=== PATIENT | male | born 1990 | race Caucasian/White ===

== ENCOUNTER 2018-02-25 10:40 | Emergency (ER) | payer OTHER ==
[2018-02-25] MEDS ORDERED: ONDANSETRON 4 MG/2 ML VIAL ONE (11:01)
[2018-02-25] MEDS ORDERED: MORPHINE 4 MG/ML SYR ONE (11:01)
[2018-02-25 11:03] LABS: Absolute Lymphocytes (CBC) 2.3 K/uL (0.7-4.9); Absolute Monocytes 0.8 K/uL (0.1-1.3); Absolute Neutrophil 3.7 K/uL (1.8-8.0); Basophils % 0.6 % (0-1.3); Eosinophils % 1.9 % (0-4.4); Hematocrit 46.8 % (39.6-49.0); Lymphocytes % 33.5 % (15.3-44.8); MCH 29.7 pg (27.0-35.0); MCV 83.1 fL (80-100); MPV 8.9 fL (7.6-11.3); Monocytes % 10.9 % (3.3-12.3); RBC Red Blood Cell Count 5.63 M/uL (4.33-5.43)
[2018-02-25 11:06] LABS: Protime INR 0.98
[2018-02-25 11:30] LABS: ALT/SGPT 34 U/L (12-78); AST/SGOT 21 U/L (15-37); Albumin 3.9 g/dL (3.4-5.0); Alkaline Phosphatase 111 U/L (45-117); BUN Blood Urea Nitrogen 10 mg/dL (7-18); Bicarbonate 29 mmol/L (21-32); Bilirubin Direct < 0.1 mg/dL (0-0.2); Bilirubin Total 0.5 mg/dL (0.2-1.0); Glucose Level 114 mg/dL (74-106); Potassium 4.4 mmol/L (3.5-5.1); Protein, Total 7.8 g/dL (6.4-8.2); Sodium Level 141 mmol/L (136-145)
[2018-02-25 11:31] LABS: Magnesium 2.3 mg/dL (1.8-2.4); NT PRO-BNP 10 pg/mL (<125); Troponin (Emerg Dept Use Only) < 0.02 ng/mL (0.0-0.045)
[2018-02-25] MEDS ORDERED: KETOROLAC 30 MG/ML INJ ONE ×2 (11:55→13:05)
--- NOTE | 2018-02-25 12:09 | RAD REPORT ---
EXAM DESCRIPTION: RAD - Chest Single View - 02/25/2018 11:49 am CLINICAL HISTORY: CHEST PAIN Chest pain. COMPARISON: CHEST PA AND LAT 2 VIEW dated 06/16/2015 FINDINGS: Portable technique limits examination quality. The lungs are underinflated but grossly clear. The heart is normal in size. No displaced fractures. IMPRESSION: Underinflated lungs.
--- NOTE | 2018-02-25 12:24 | EKG ---
Test Date: 2018-02-25 Test Time: 10:42:40 [employer]ofer [employer]ating: MEASUREMENT RESULTS: Intervals: Rate: 86 MD: 154 QRSD: 78 QT: 350 QTc: 418 [place]: P: 39 MD: 154 QRS: -12 T: 48 INTERPRETIVE STATEMENTS: Normal sinus rhythm Normal ECG Compared to ECG 02/06/2004 09:50:00 No significant changes Electronically Signed On 02-25-18 12:23:46 CDT by Otilio Love
[2018-02-25 12:25] LABS: Barbiturates NEGATIVE (NEGATIVE); Benzodiazepines NEGATIVE (NEGATIVE); Cocaine NEGATIVE (NEGATIVE); METHAMPHETAM NEGATIVE (NEGATIVE); Methadone NEGATIVE (NEGATIVE); Opiates POSITIVE (NEGATIVE); Phencyclidine NEGATIVE (NEGATIVE); THC Cannibis NEGATIVE (NEGATIVE)
[2018-02-25 12:35] LABS: Urine Blood NEGATIVE (NEG); Urine Glucose NEGATIVE (NEG); Urine Protein NEGATIVE (NEG); Urine Specific Gravity >1.030 (1.005-1.030)
--- NOTE | 2018-02-25 13:32 | RAD REPORT ---
EXAM DESCRIPTION: CT - Thorax W/ Con CLINICAL HISTORY: Chest pain chest pain COMPARISON: Chest Single View dated 02/25/2018 FINDINGS: The lungs are underinflated with linear opacities in both posterior lung bases most compat ible with atelectasis. No focal pulmonary infiltrate. No pleural thickening or pleural effusion. No p neumothorax. No axillary, mediastinal or hilar adenopathy. No concerning bony finding. No gross upper abdominal finding. All CT scans are performed using dose optimization technique as appropriate and may include automated exposure control or mA/KV adjustment according to patient size. IMPRESSION: Underinflated lungs.No acute intrathoracic abnormality.
[2018-02-25] MEDS ORDERED: METHYLPREDNISOLONE 125 MG INJ ONE (14:27)
--- NOTE | 2018-02-25 14:53 | EDPHYS ---
Physician Documentation [facility] Name: Phill Woodard Age: 28 yrs Sex: Male : 1990 Arrival Date: 02/25/2018 Time: 10:41 Bed 3 Private MD: None, None ED Physician Fei Sarabia HPI: 02/25 10:46 This 28 yrs old Male presents to ER via EMS with complaints of Chest Pain. cp 10:46 The patient or guardian reports chest pain that is located primarily in the anterior cp chest wall, left. 10:46 The pain radiates to left back. Duration: The patient or guardian reports a single cp episode, that is still ongoing, and worsening, started last night. Modifying factors: the symptoms are aggravated by deep breath. Historical: - Allergies: 10:49 No Known Allergies; sg - Home Meds: 10:49 None [Active]; sg - PMHx: 10:49 None; sg - PSHx: 10:49 None; sg - Social history:: Smoking status: Patient/guardian denies using tobacco. - Ebola Screening: : Patient negative for fever greater than or equal to 101.5 degrees Fahrenheit, and additional compatible Ebola Virus Disease symptoms Patient denies exposure to infectious person Patient denies travel to an Ebola-affected area in the 21 days before illness onset No symptoms or risks identified at this time. - Family history:: Father has/had multiple AL. ROS: 10:50 Constitutional: Negative for body aches, chills, fever, poor PO intake. cp 10:50 Eyes: Negative for injury, pain, redness, and discharge. cp 10:50 ENT: Negative for drainage from ear(s), ear pain, sore throat, difficulty swallowing, difficulty handling secretions. 10:50 Cardiovascular: Positive for chest pain, Negative for edema, palpitations. 10:50 Respiratory: Positive for shortness of breath, Negative for cough, wheezing. 10:50 Abdomen/GI: Negative for abdominal pain, nausea, vomiting, and diarrhea, constipation, black/tarry stool, rectal bleeding. 10:50 Back: Positive for radiated pain, Negative for pain at rest, pain with movement. 10:50 : Negative for urinary symptoms. 10:50 Skin: Negative for cellulitis, rash. 10:50 Neuro: Negative for altered mental status, dizziness, headache, syncope, near syncope, weakness. 10:50 All other systems are negative. Exam: 10:45 ECG was reviewed by the Attending Physician. cp 10:55 Constitutional: The patient appears in no acute distress, alert, awake, cp non-diaphoretic, well developed, well nourished, uncomfortable. 10:55 Head/Face: Normocephalic, atraumatic. Eyes: Pupils equal round and reactive to light, cp extra-ocular motions intact. Lids and lashes normal. Conjunctiva and sclera are non-icteric and not injected. Cornea within normal limits. Periorbital areas with no swelling, redness, or edema. ENT: Nares patent. No nasal discharge, no septal abnormalities noted. Tympanic membranes are normal and external auditory canals are clear. Oropharynx with no redness, swelling, or masses, exudates, or evidence of obstruction, uvula midline. Mucous membranes moist. Neck: Trachea midline, no thyromegaly or masses palpated, and no cervical lymphadenopathy. Supple, full range of motion without nuchal rigidity, or vertebral point tenderness. No Meningismus. 10:55 Chest/axilla: Inspection: normal, Palpation: crepitus, is not appreciated, tenderness, that is mild, of the anterior aspect of left upper chest and left breast. 10:55 Cardiovascular: Rate: normal, Rhythm: regular, Pulses: Pulses are 2+ in right radial artery and left radial artery. Heart sounds: murmur, not appreciated, rub, not appreciated, gallop, not appreciated, Edema: is not appreciated, JVD: is not appreciated. 10:55 Respiratory: the patient does not display signs of respiratory distress, Respirations: normal, no use of accessory muscles, no retractions, no splinting, no tachypnea, labored breathing, is not present, Breath sounds: are clear throughout, no decreased breath sounds, no stridor, no wheezing. 10:55 Abdomen/GI: Inspection: abdomen appears normal, Bowel sounds: active, all quadrants, Palpation: abdomen is soft and non-tender, in all quadrants, rebound tenderness, is not appreciated, voluntary guarding, is not appreciated, involuntary guarding, is not appreciated. 10:55 Back: ROM is normal. 10:55 Skin: cellulitis, is not appreciated, no rash present. 10:55 Neuro: Orientation: to person, place \T\ time. Mentation: lucid, able to follow commands, Cerebellar function: is grossly normal, Motor: moves all fours, strength is normal, Sensation: is normal. 14:09 ECG was reviewed by the Attending Physician. Vital Signs: 10:45 BP 137 / 80; Pulse 79; Resp 17 S; Pulse Ox 93% on R/A; Weight 86.18 kg (R); Height 6 sg ft. 0 in. (182.88 cm) (R); Pain 7/10; 11:45 BP 94 / 81; Pulse 77; Resp 16; Pulse Ox 100% on R/A; Pain 8/10; hb 12:45 BP 112 / 78; Pulse 76; Resp 15; Pulse Ox 100% on R/A; hb 13:45 BP 127 / 67; Pulse 74; Resp 15; Pulse Ox 100% on R/A; Pain 8/10; hb 14:45 BP 132 / 70; Pulse 72; Resp 15; Pulse Ox 100% on R/A; hb 10:45 Body Mass Index 25.77 (86.18 kg, 182.88 cm) sg MDM: 10:43 Patient medically screened. 14:52 Data reviewed: vital signs, nurses notes, lab test result(s), EKG, radiologic studies, cp CT scan, plain films. 14:52 Test interpretation: by ED physician or midlevel provider: ECG, plain radiologic cp studies. Special discussion: Based on the patient's history, exam, and Dx evaluation, there is no indication for emergent intervention or inpatient Tx. It is understood by the patient/guardian that if the Sx's persist or worsen they need to return immediately for re-evaluation. ED course: VSS. Pain improved with IV fluids and meds. Initial and repeat EKGs and troponin negative. Will discharge to home for continued monitoring. 02/25 10:44 Order name: Basic Metabolic Panel; Complete Time: 12:04 cp 02/25 12:05 Interpretation: Normal except: GLUC 114; GFR 80. cp 02/25 10:44 Order name: CBC with Diff; Complete Time: 11:16 cp 02/25 11:16 Interpretation: Normal except: RBC 5.63. cp 02/25 10:44 Order name: LFT's; Complete Time: 12:04 cp 02/25 12:05 Interpretation: Normal except: GLOB 3.9; A/G 1.0. cp 02/25 10:44 Order name: Magnesium; Complete Time: 12:04 cp 02/25 10:44 Order name: NT PRO-BNP; Complete Time: 12:04 cp 02/25 12:05 Interpretation: Within normal limits: NT PRO-BNP 10. cp 02/25 10:44 Order name: PT-INR; Complete Time: 11:16 cp 02/25 10:44 Order name: Troponin (emerg Dept Use Only); Complete Time: 12:04 cp 02/25 12:05 Interpretation: TROPED < 0.02; Reviewed. cp 02/25 10:44 Order name: XRAY Chest (1 view); Complete Time: 12:16 cp 02/25 12:16 Interpretation: Report review. 02/25 10:44 Order name: D-Dimer; Complete Time: 11:16 cp 02/25 11:16 Interpretation: D-DIMER 225; Reviewed. 02/25 10:44 Order name: UDS; Complete Time: 12:31 cp 02/25 12:31 Interpretation: Normal except: OPI POSITIVE. cp 02/25 12:26 Order name: Urine Dipstick--Ancillary (enter results); Complete Time: 12:41 bd 02/25 12:41 Interpretation: Normal except: USPGR >1.030. cp 02/25 12:59 Order name: CT Chest W/ Con; Complete Time: 13:43 cp 02/25 13:47 Order name: Troponin I; Complete Time: 14:49 cp 02/25 14:50 Interpretation: TROP < 0.02; Reviewed. 02/25 10:44 Order name: EKG; Complete Time: 10:45 cp 02/25 10:44 Order name: Cardiac monitoring; Complete Time: 10:48 cp 02/25 10:44 Order name: EKG - Nurse/Tech; Complete Time: 10:48 cp 02/25 10:44 Order name: IV Saline Lock; Complete Time: 10:48 cp 02/25 10:44 Order name: Labs collected and sent; Complete Time: 10:48 cp 02/25 10:44 Order name: O2 Per Protocol; Complete Time: 10:49 cp 10 10:44 Order name: O2 Sat Monitoring; Complete Time: 10:49 cp 10 10:47 Order name: Blood Pressure Recheck: bilateral upper extremities; Complete Time: 13:26 cp 02/25 13:47 Order name: EKG; Complete Time: 13:47 cp 02/25 13:47 Order name: EKG - Nurse/Tech; Complete Time: 14:27 cp EC:45 Rate is 86 beats/min. Rhythm is regular. KS interval is normal. QRS interval is normal. cp QT interval is normal. Interpreted by me. Reviewed by me. 14:09 Rate is 64 beats/min. Rhythm is regular. KS interval is normal. QRS interval is normal. cp QT interval is normal. Interpreted by me. Reviewed by me. Administered Medications: 10:48 Not Given (administere by EMS ): Aspirin Chewable Tablet 324 mg PO once; 81 mg tablets sg x 4 10:57 Drug: morphine 2 mg Route: IVP; Site: right antecubital; hb 11:30 Follow up: Response: No adverse reaction hb 10:57 Drug: Zofran 4 mg Route: IVP; Site: right antecubital; hb 13:26 Follow up: Response: No adverse reaction hb 12:30 Drug: NS 0.9% 1000 ml Route: IV; Rate: 1 bolus; Site: right antecubital; hb 13:30 Follow up: Response: No adverse reaction; IV Status: Completed infusion hb 12:33 Drug: TORadol 30 mg Route: IVP; Site: right antecubital; hb 13:15 Follow up: Response: No adverse reaction hb 14:10 Drug: SOLU-Medrol 125 mg Route: IVP; Site: right antecubital; hb 14:44 Follow up: Response: No adverse reaction hb 14:44 Drug: HYDROcodone-acetaminophen 5 mg-325 mg 1 tabs Route: PO; hb 15:22 Follow up: Response: No adverse reaction hb Disposition: 18:21 Co-signature as Attending Physician, Fei Sarabia MD. gs Disposition: 02/25/18 14:53 Discharged to Home. Impression: Other chest pain. - Condition is Stable. - Discharge Instructions: Nonspecific Chest Pain, Pleurisy. - Prescriptions for ketorolac 10 mg Oral tablet - take 1 tablet by ORAL route every 6 hours for 5 days not to exceed 40 mg in 24hrs; 20 tablet. Tramadol 50 mg Oral Tablet - take 1 tablet by ORAL route every 8 hours as needed; 20 tablet. - Work release form, Medication Reconciliation Form, Thank You Letter, Antibiotic Education, Prescription Opioid Use form. - Follow up: Private Physician; When: 2 - 3 days; Reason: Recheck today's complaints. - Problem is new. - Symptoms have improved. Signatures: Dispatcher [employer] [facility] Eron Lakhani, RN RN sg Kip Fields PA PA cp Cynthia Walker RN RN Fei Sarabia MD MD gs Corrections: (The following items were deleted from the chart) 13:02 12:45 Thorax W/ Con+CT.RAD.BRZ ordered. [facility] 15:26 14:53 02/25/2018 14:53 Discharged to Home. Impression: Other chest pain. Condition is hb Stable. Forms are Medication Reconciliation Form, Thank You Letter, Antibiotic Education, Prescription Opioid Use. Follow up: Private Physician; When: 2 - 3 days; Reason: Recheck today's complaints. Problem is new. Symptoms have improved. cp
--- NOTE | 2018-02-25 14:53 | ER ---
Nurse's Notes [facility] Name: Phill Woodard Age: 28 yrs Sex: Male : 1990 Arrival Date: 02/25/2018 Time: 10:41 Bed 3 Private MD: None, None Diagnosis: Other chest pain Presentation: 02/25 10:41 Presenting complaint: EMS states: CP that started last night, worsened this morning sg while walking through his home, reports feeling short of breath as well with the pain radiating to the back. Transition of care: patient was not received from another setting of care. Onset of symptoms was February 25, 2018. Risk Assessment: Do you want to hurt yourself or someone else? Patient reports no desire to harm self or others. Initial Sepsis Screen: Does the patient meet any 2 criteria? No. Patient's initial sepsis screen is negative. Does the patient have a suspected source of infection? No. Patient's initial sepsis screen is negative. Care prior to arrival: Medication(s) given: ASA, 81 mg, x 4, Nitroglycerin, 0.4 mg SL x 1, Nubain 10 mg IV pain down from 8 to 7 IV initiated. 20 GA, in the right antecubital area, Glucose check: 135 Oxygen administered. via nasal cannula. 10:41 Method Of Arrival: EMS: [facility] sg 10:41 Acuity: TOMMY 3 sg Historical: - Allergies: 10:49 No Known Allergies; sg - Home Meds: 10:49 None [Active]; sg - PMHx: 10:49 None; sg - PSHx: 10:49 None; sg - Social history:: Smoking status: Patient/guardian denies using tobacco. - Ebola Screening: : Patient negative for fever greater than or equal to 101.5 degrees Fahrenheit, and additional compatible Ebola Virus Disease symptoms Patient denies exposure to infectious person Patient denies travel to an Ebola-affected area in the 21 days before illness onset No symptoms or risks identified at this time. - Family history:: Father has/had multiple [place]. Screenin:57 Abuse screen: Denies threats or abuse. Denies injuries from another. Nutritional sg screening: No deficits noted. Tuberculosis screening: No symptoms or risk factors identified. Never had TB. Fall Risk None identified. Assessment: 10:55 General: Appears in no apparent distress. uncomfortable, ill, well groomed, well sg developed, well nourished, Behavior is calm, cooperative, quiet. Pain: Complains of pain in chest Quality of pain is described as sharp, shooting. Neuro: Level of Consciousness is awake, alert, obeys commands, Oriented to person, place, time, situation, Homemaking Rehabilitation Consultant are equal bilaterally Moves all extremities. Full function Speech is normal, Facial symmetry appears normal. Cardiovascular: Heart tones S1 S2 present Capillary refill is brisk in bilateral fingers Patient's skin is warm and dry. Chest pain quality is clutching, heaviness, pressure, is located in anterior chest wall. Respiratory: Airway is patent Respiratory effort is even, unlabored, Respiratory pattern is regular, symmetrical. GI: Abdomen is round non-distended. : No signs and/or symptoms were reported regarding the genitourinary system. EENT: No signs and/or symptoms were reported regarding the EENT system. Derm: Skin is intact, is healthy with good turgor, Skin is clammy, Skin is pale, Skin temperature is cool. Musculoskeletal: Circulation, motion, and sensation intact. Range of motion: intact in all extremities, Swelling absent. 11:51 Reassessment: Pt c/o left sided chest pain 8/10 that radiates to back. VSS. PA Page hb notified, Toradol administered as ordered. Family remains at bedside. 12:45 Reassessment: Pt c/o left sided chest pain 8/10, PA Page notified, Toradol administered hb as ordered. VS. Family remains at bedside. 13:30 Reassessment: Patient appears in no apparent distress at this time. Patient and/or hb family updated on plan of care and expected duration. Pain level reassessed. Patient is alert, oriented x 3, equal unlabored respirations, skin warm/dry/pink. Patient is alert/active/playful, equal unlabored respirations, skin warm/dry/pink. Pt reports pain 8/10, PA Page notified, no new orders at this time. 14:30 Reassessment: Patient appears in no apparent distress at this time. Patient and/or hb family updated on plan of care and expected duration. Pain level reassessed. Patient is alert, oriented x 3, equal unlabored respirations, skin warm/dry/pink. Vital Signs: 10:45 BP 137 / 80; Pulse 79; Resp 17 S; Pulse Ox 93% on R/A; Weight 86.18 kg (R); Height 6 sg ft. 0 in. (182.88 cm) (R); Pain 7/10; 11:45 BP 94 / 81; Pulse 77; Resp 16; Pulse Ox 100% on R/A; Pain 8/10; hb 12:45 BP 112 / 78; Pulse 76; Resp 15; Pulse Ox 100% on R/A; hb 13:45 BP 127 / 67; Pulse 74; Resp 15; Pulse Ox 100% on R/A; Pain 8/10; hb 14:45 BP 132 / 70; Pulse 72; Resp 15; Pulse Ox 100% on R/A; hb 10:45 Body Mass Index 25.77 (86.18 kg, 182.88 cm) ED Course: 10:41 Patient arrived in ED. sg 10:41 Kip Fields PA is PHCP. cp 10:41 Fei Sarabia MD is Attending Physician. cp 10:41 None, None is Private Physician. sg 10:43 Triage completed. sg 10:45 Initial lab(s) drawn, by ED staff, sent to lab. EKG done, by ED staff, reviewed by watson RAMIREZ. Maintain EMS IV. Dressing intact. Site clean \T\ dry. Gauge \T\ site: 20 G RAC. IV is patent, is intact, with good blood return. Oxygen administration via nasal cannula \T\ 2L/min Response to oxygen therapy:. 10:51 Arm band placed on. sg 10:55 Eron Lakhani, RN is Primary Nurse. sg 10:57 Patient has correct armband on for positive identification. Bed in low position. Call sg light in reach. Side rails up X2. room manager on. Pulse ox on. NIBP on. Warm blanket given. pt at bedside with pt at this time Head of bed elevated. Diet: Patient is NPO. 11:47 X-ray completed. Portable x-ray completed in exam room. Patient tolerated procedure ag1 well. 11:50 XRAY Chest (1 view) In Process Unspecified. EDMS 13:18 CT Chest W/ Con In Process Unspecified. EDMS 14:08 REPEAT EKG DONE. sm3 14:10 Repeat lab(s) drawn. by me, sent to lab. dh3 15:05 No provider procedures requiring assistance completed. IV discontinued, intact, hb bleeding controlled, No redness/swelling at site. Pressure dressing applied. Administered Medications: 10:48 Not Given (administere by EMS ): Aspirin Chewable Tablet 324 mg PO once; 81 mg tablets sg x 4 10:57 Drug: morphine 2 mg Route: IVP; Site: right antecubital; hb 11:30 Follow up: Response: No adverse reaction hb 10:57 Drug: Zofran 4 mg Route: IVP; Site: right antecubital; hb 13:26 Follow up: Response: No adverse reaction hb 12:30 Drug: NS 0.9% 1000 ml Route: IV; Rate: 1 bolus; Site: right antecubital; hb 13:30 Follow up: Response: No adverse reaction; IV Status: Completed infusion hb 12:33 Drug: TORadol 30 mg Route: IVP; Site: right antecubital; hb 13:15 Follow up: Response: No adverse reaction hb 14:10 Drug: SOLU-Medrol 125 mg Route: IVP; Site: right antecubital; hb 14:44 Follow up: Response: No adverse reaction hb 14:44 Drug: HYDROcodone-acetaminophen 5 mg-325 mg 1 tabs Route: PO; hb 15:22 Follow up: Response: No adverse reaction hb Outcome: 14:53 Discharge ordered by MD. cp 15:05 Discharged to home ambulatory, with family. 15:05 Condition: stable 15:05 Discharge instructions given to patient, family, Instructed on discharge instructions, follow up and referral plans. medication usage, Demonstrated understanding of instructions, follow-up care, medications, Prescriptions given X 2. 15:26 Patient left the ED. Signatures: Dispatcher [employer] EDMS rEon Lakhani RN RN sg Callie Tsai ag1 Kip Fields PA PA cp Baxter, Heather, RN RN Rabia Herrera 3 Dori Hart 3 Corrections: (The following items were deleted from the chart) 10:44 10:41 Care prior to arrival: Medication(s) given: ASA, 81 mg, x 4, Nitroglycerin, 0.4 sg mg SL x 1, IV initiated. 20 GA, in the right antecubital area, Glucose check: 135 Oxygen administered. via nasal cannula, sg
[2018-02-25] MEDS ORDERED: HYDROCODONE/APAP 5/325 MG TAB ONE (14:56)
--- NOTE | 2018-02-25 17:38 | EKG ---
Test Date: 2018-02-25 Test Time: 13:58:29 Drywall Hanger: KATHY MEASUREMENT RESULTS: Intervals: Rate: 64 OH: 160 QRSD: 80 QT: 394 QTc: 406 Mcdowell: P: 44 OH: 160 QRS: 16 T: 42 INTERPRETIVE STATEMENTS: Normal sinus rhythm with sinus arrhythmia Normal ECG Compared to ECG 02/25/2018 10:42:40 No significant changes Electronically Signed On 02-25-18 17:37:49 CDT by Otilio Love
== END 2018-02-25 15:26 | disposition home or self-care (01) ==
LOC: ER 10:40
DX: R07.89 Other chest pain (principal)
CPT/HCPCS: 36415; 71045; 71260; 80048; 80076; 80307; 81003; 83735; 83880; 84484; 85025; 85379; 85610; 93005; J2405; J2930; Q9967

== ENCOUNTER 2020-08-06 12:54 | Emergency (ER) | payer BC, OTHER, SELFPAY ==
[2020-08-06] MEDS ORDERED: BUPIVACAINE 0.5% PF 10 ML VIAL ONE (13:28)
[2020-08-06] MEDS ORDERED: LIDOCAINE 1% MPF 5 ML VIAL ONE (13:28)
--- NOTE | 2020-08-06 13:40 | EDPHYS ---
Physician Documentation [facility] Name: Phill Woodard Age: 30 yrs Sex: Male : 1990 Arrival Date: 08/06/2020 Time: 12:55 Bed 17 Private MD: ED Physician Guy Ochoa HPI: 08/06 13:17 This 30 yrs old Male presents to ER via Ambulatory with complaints of Finger kb Injury - middle left. 13:17 The patient or guardian reports decreased range of motion, deformity, injury, pain. The kb complaints affect the dorsal aspect of distal phalanx of left middle finger. Context: The problem was sustained outdoors, resulted from jammed finger while working on a car. Onset: The symptoms/episode began/occurred just prior to arrival. Modifying factors: The symptoms are alleviated by nothing, the symptoms are aggravated by movement. Associated signs and symptoms: The patient has no apparent associated signs or symptoms. Severity of symptoms: At their worst the symptoms were moderate, in the emergency department the symptoms are unchanged. The patient has not experienced similar symptoms in the past. The patient has not recently seen a physician. Historical: - Allergies: 13:01 No Known Allergies; ca1 - Home Meds: 13:01 None [Active]; ca1 - PMHx: 13: None; ca1 - PSHx: 13:01 None; ca1 - Immunization history:: Flu vaccine is up to date. - Social history:: Smoking status: Patient denies any tobacco usage or history of. ROS: 13:15 Constitutional: Negative for fever, chills, and weight loss, Skin: Negative for injury, kb rash, and discoloration, Neuro: Negative for headache, weakness, numbness, tingling, and seizure. 13:15 MS/extremity: Positive for decreased range of motion, deformity, pain, of the dorsal aspect of distal phalanx of left middle finger. Exam: 13:14 Constitutional: This is a well developed, well nourished patient who is awake, alert, kb and in no acute distress. Head/Face: Normocephalic, atraumatic. Respiratory: Respirations even and unlabored. No increased work of breathing, no retractions or nasal flaring. Skin: Warm, dry with normal turgor. Normal color. Neuro: Awake and alert, GCS 15, oriented to person, place, time, and situation. Moves all extremities. Normal gait. 13:14 Musculoskeletal/extremity: Extremities: grossly normal except: noted in the dorsal aspect of distal phalanx of left middle finger: decreased ROM, deformity, pain, ROM: limited active range of motion, in the dorsal aspect of distal phalanx of left middle finger, Circulation is intact in all extremities. Sensation intact. Vital Signs: 12:59 BP 137 / 91; Pulse 89; Resp 16 S; Temp 98.4(TE); Pulse Ox 99% on R/A; Weight 122.47 kg ca1 (R); Height 5 ft. 9 in. (175.26 cm); Pain 0/10; 13:53 BP 131 / 88; Pulse 81; Resp 17; Pulse Ox 100% ; rb3 12:59 Body Mass Index 39.87 (122.47 kg, 175.26 cm) ca1 Procedures: 13:16 Nerve block: (digital) of palmar aspect of proximal phalanx of left middle finger kb Medication: Lidocaine 1% with epinephrine, Marcaine 0.5%, Amount: 5 mls were injected, Effect: the patient has resolution of the pain, Set up for procedure. Performed by Anais LAWSON Patient tolerated well. MDM: 13:05 Patient medically screened. kb 13:15 Data reviewed: vital signs, nurses notes. Data interpreted: Pulse oximetry: on room air kb is 99 %. Interpretation: normal. 13:38 Counseling: I had a detailed discussion with the patient and/or guardian regarding: the kb historical points, exam findings, and any diagnostic results supporting the discharge/admit diagnosis, radiology results, the need for outpatient follow up, a family practitioner, to return to the emergency department if symptoms worsen or persist or if there are any questions or concerns that arise at home. 08/06 13:08 Order name: Hand Left 3 View XRAY kb 08/06 13:38 Order name: Finger Splint; Complete Time: 13:52 kb Administered Medications: 13:14 Drug: Lidocaine (1 %) 5 mg Route: Infiltration; kb 13:14 Drug: Marcaine (bupivacaine) (0.5 %) 1 vials Volume: 10 ml; Route: Infiltration; kb Disposition: 08/06/20 13:39 Discharged to Home. Impression: Other sprain of left middle finger. - Condition is Stable. - Discharge Instructions: Finger Sprain, [id number]. - Medication Reconciliation Form, Thank You Letter, Antibiotic Education, Prescription Opioid Use form. - Follow up: Emergency Department; When: As needed; Reason: Worsening of condition. Follow up: Private Physician; When: 2 - 3 days; Reason: Recheck today's complaints, Continuance of care, Re-evaluation by your physician. Addendum: 08/10/2020 19:33 Co-signature as Attending Physician, Guy Ochoa MD. m a2 Signatures: Dispatcher [employer] EDMS Anais Grady, NIGHT SHIFT SUPERVISOR-C NIGHT SHIFT SUPERVISOR-Guy Gurrola MD MD ma2 Lyndsey Post RN RN ca1 Taty Feliciano, RN RN rb3 Corrections: (The following items were deleted from the chart) 08/06 13:54 13:39 08/06/2020 13:39 Discharged to Home. Impression: Other sprain of left middle rb3 finger. Condition is Stable. Forms are Medication Reconciliation Form, Thank You Letter, Antibiotic Education, Prescription Opioid Use. Follow up: Emergency Department; When: As needed; Reason: Worsening of condition. Follow up: Private Physician; When: 2 - 3 days; Reason: Recheck today's complaints, Continuance of care, Re-evaluation by your physician. kb
--- NOTE | 2020-08-06 13:40 | ER ---
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 Tip of L finger ca1 bent at this time. Coronavirus screen: Client denies travel out of the [place] in the last 14 days. At this time, the client does not indicate any symptoms associated with coronavirus-19. Ebola Screen: Patient negative for fever greater than or equal to 101.5 degrees Fahrenheit, and additional compatible Ebola Virus Disease symptoms Patient denies exposure to infectious person. Patient denies travel to an Ebola-affected area in the 21 days before illness onset. No symptoms or risks identified at this time. Initial Sepsis Screen: Does the patient meet any 2 criteria? No. Patient's initial sepsis screen is negative. Does the patient have a suspected source of infection? No. Patient's initial sepsis screen is negative. Risk Assessment: Do you want to hurt yourself or someone else? Patient reports no desire to harm self or others. Onset of symptoms was August 06, 2020. 12:59 Method Of Arrival: Ambulatory ca1 12:59 Acuity: TOMMY 4 ca1 Historical: - Allergies: 13:01 No Known Allergies; ca1 - Home Meds: 13:01 None [Active]; ca1 - PMHx: 13:01 None; ca1 - PSHx: 13:01 None; ca1 - Immunization history:: Flu vaccine is up to date. - Social history:: Smoking status: Patient denies any tobacco usage or history of. Screenin:06 Abuse screen: Denies threats or abuse. Nutritional screening: No deficits noted. rb3 Tuberculosis screening: No symptoms or risk factors identified. Fall Risk None identified. Assessment: 13:06 General: Appears in no apparent distress. Behavior is calm, cooperative. 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 Pain: Complains of pain in left middle finger. Neuro: Level of Consciousness is awake, alert, obeys commands, Oriented to person, place, time, situation. Cardiovascular: Capillary refill < 3 seconds Patient's skin is warm and dry. Respiratory: Airway is patent Respiratory effort is even, unlabored, Respiratory pattern is regular, symmetrical. GI: No signs and/or symptoms were reported involving the gastrointestinal system. : No signs and/or symptoms were reported regarding the genitourinary system. Musculoskeletal: Range of motion: limited in left middler finger. 13:52 Reassessment: Patient appears in no apparent distress at this time. Patient and/or rb3 family updated on plan of care and expected duration. Pain level reassessed. Patient is alert, oriented x 3, equal unlabored respirations, skin warm/dry/pink. Vital Signs: 12:59 BP 137 / 91; Pulse 89; Resp 16 S; Temp 98.4(TE); Pulse Ox 99% on R/A; Weight 122.47 kg ca1 (R); Height 5 ft. 9 in. (175.26 cm); Pain 0/10; 13:53 BP 131 / 88; Pulse 81; Resp 17; Pulse Ox 100% ; rb3 12:59 Body Mass Index 39.87 (122.47 kg, 175.26 cm) ca1 ED Course: 12:55 Patient arrived in ED. am2 13:01 Triage completed. ca1 13:01 Arm band placed on right wrist. ca1 13:05 [facility]C [facility] kb 13:05 Guy Ochoa MD is Attending Physician. kb 13:06 Patient has correct armband on for positive identification. Bed in low position. Call rb3 light in reach. Side rails up X 1. Pulse ox on. NIBP on. 13:32 Taty Feliciano, RN is Primary Nurse. rb3 13:52 Hand Left 3 View XRAY In Process Unspecified. EDMS 13:54 No provider procedures requiring assistance completed. Patient did not have IV access rb3 during this emergency room visit. Administered Medications: 13:14 Drug: Lidocaine (1 %) 5 mg Route: Infiltration; kb 13:14 Drug: Marcaine (bupivacaine) (0.5 %) 1 vials Volume: 10 ml; Route: Infiltration; kb Outcome: 13:39 Discharge ordered by MD. kb 13:54 Discharged to home ambulatory. rb3 13:54 Condition: stable 13:54 Discharge instructions given to patient, Instructed on discharge instructions, follow up and referral plans. Demonstrated understanding of instructions, follow-up care, Prescriptions given X 1. 13:54 Patient left the ED. rb3 Signatures: Dispatcher [employer] Anais Graf, LULU ALVAREZ-Azra Serrato Cheryl, RN RN ca1 Taty Feliciano RN RN rb3
[2020-08-06 14:09] VITALS: BP 131/88; TEMP 98.4; O2SAT 100
--- NOTE | 2020-08-06 14:58 | RAD REPORT ---
EXAM DESCRIPTION: RAD - Hand Left 3 View - 08/06/2020 1:52 pm CLINICAL HISTORY: DEFORMITY, blunt force trauma left middle finger COMPARISON: None. FINDINGS: No fracture, dislocation or periosteal reaction noted. Patient is flexed at the third DIP joint. This can be an indicator of the ligamentous or tendon injury. There is no bone avulsion identi fiable. No other flexion/ extension joint abnormality. No foreign body in the soft tissues. IMPRESSION: No fractures seen. No acute bone finding identifiable. Patient is flexed at the third DIP joint which can be an indicator of ligament or tendon injury witho ut bone component.
== END 2020-08-06 13:54 | disposition home or self-care (01) ==
LOC: ER 12:54
DX: S63.693A Other sprain of left middle finger, initial encounter (principal); W23.0XXA Caught, crushed, jammed, or pinched between moving objects, initial encounter; Y93.89 Activity, other specified; Y92.9 Unspecified place or not applicable
CPT/HCPCS: 64450; 99284

== ENCOUNTER 2023-01-21 08:16 | Emergency (ER) | payer BC ==
[2023-01-21 09:24] LABS: SARS-CoV-2 Antigen Rapid Res Negative (Negative)
--- NOTE | 2023-01-21 09:55 | EDPHYS ---
Physician Documentation [facility] Name: Phill Woodard Age: 32 yrs Sex: Male : 1990 Arrival Date: 01/21/2023 Time: 08:16 Bed IW1 Private MD: ED Physician Alexx Mcmullen HPI: 01/21 09:53 This 32 yrs old Male presents to ER via Ambulatory with complaints of Covid. rn 09:53 Patient here for COVID testing, directed here by work. Reports chills, congestion, rn diarrhea. Started feeling sick 2 days ago but already feels better.. Onset: The symptoms/episode began/occurred 2 day(s) ago. Severity of symptoms: At their worst the symptoms were mild in the emergency department the symptoms have improved. The patient has not experienced similar symptoms in the past. The patient has not recently seen a physician. Historical: - Allergies: 08:43 No Known Allergies; hb - Home Meds: 08:43 None [Active]; hb - PMHx: 08:43 None; hb - PSHx: 08:43 None; hb - Immunization history:: Adult Immunizations up to date. - Family history:: not pertinent. - Social history:: Smoking status: Patient denies any tobacco usage or history of. - Hospitalizations: : No recent hospitalization is reported. ROS: 09:53 Constitutional: Negative for fever, and weight loss, Eyes: Negative for injury, pain, rn redness, and discharge, Neck: Negative for injury, pain, and swelling, Cardiovascular: Negative for chest pain, palpitations, and edema, Respiratory: Negative for shortness of breath, cough, wheezing, and pleuritic chest pain, Abdomen/GI: Positive for nausea and diarrhea, negative for abdominal pain MS/Extremity: Negative for injury and deformity, Skin: Negative for injury, rash, and discoloration, Neuro: Negative for headache, weakness, numbness, tingling, and seizure. Exam: 09:53 Constitutional: This is a well developed, well nourished patient who is awake, alert, rn and in no acute distress. Respiratory: Speaking full sentences, unlabored. No increased work of breathing, no retractions or nasal flaring. Neuro: Awake and alert, GCS 15 Vital Signs: 08:43 BP 142 / 82; Pulse 88; Resp 16; Temp 98.1; Pulse Ox 100% on R/A; Weight 124.74 kg; hb Height 5 ft. 8 in. ; Pain 0/10; 08:43 Body Mass Index 41.81 (124.74 kg, 172.72 cm) hb 08:43 Pain Scale: Adult hb MDM: 08:27 Patient medically screened. rn 09:53 Differential Diagnosis COVID, flu, viral illness. Data reviewed: vital signs, nurses rn notes, lab test result(s), and as a result, I will discharge patient. Counseling: I had a detailed discussion with the patient and/or guardian regarding the historical points, exam findings, and any diagnostic results supporting the discharge/admit diagnosis, lab results, the need for outpatient follow up, to return to the emergency department if symptoms worsen or persist or if there are any questions or concerns that arise at home. Special discussion: I discussed with the patient/guardian in detail that at this point there is no indication for admission to the hospital. It is understood, however, that if the symptoms persist or worsen the patient needs to return immediately for re-evaluation. 01/21 08:29 Order name: ERIC RAPID; Complete Time: 09:52 lg3 Administered Medications: No medications were administered Disposition Summary: 01/21/23 09:55 Discharge Ordered Location: Home rn Problem: new rn Symptoms: have improved rn Condition: Stable rn Diagnosis - Diarrhea, unspecified rn - Viral illness rn Followup: rn - With: Private Physician - When: As needed - Reason: Recheck today's complaints, Re-evaluation by your physician Discharge Instructions: - Diarrhea, Adult rn - Viral Illness, Adult rn - Discharge Summary Sheet hb Forms: - Medication Reconciliation Form rn - Thank You Letter rn - Antibiotic rn plastics - Prescription Opioid Use rn - Patient Portal Instructions rn - Leadership Thank You Letter rn - Work release form hb Signatures: Dispatcher [employer] Alexx Houston MD MD rn Baxter, Heather, RN RN hb Lewis, Lynsay, RN RN ll1 Corrections: (The following items were deleted from the chart) 08:44 08:43 PMHx: Unable to Obtain; hb hb
--- NOTE | 2023-01-21 09:55 | ER ---
Nurse's Notes [facility] Name: Phill Woodard Age: 32 yrs Sex: Male : 1990 Arrival Date: 01/21/2023 Time: 08:16 Bed IW1 Private MD: Diagnosis: Diarrhea, unspecified;Viral illness Presentation: 01/21 08:43 Chief complaint: N/V yesterday, needs COVID test to return to work. Coronavirus screen: hb At this time, the client does not indicate any symptoms associated with coronavirus-19. Ebola Screen: No symptoms or risks identified at this time. Initial Sepsis Screen: Does the patient meet any 2 criteria? No. Patient's initial sepsis screen is negative. Does the patient have a suspected source of infection? No. Patient's initial sepsis screen is negative. Risk Assessment: Do you want to hurt yourself or someone else? Patient reports no desire to harm self or others. Onset of symptoms was January 21, 2023. 08:43 Method Of Arrival: Ambulatory hb 08:43 Acuity: TOMMY 4 hb Triage Assessment: 10:01 General: Appears in no apparent distress. Behavior is calm, cooperative, appropriate ll1 for age. General: Had N/V yesterday. Feels better today. Needs work release. Pain: Denies pain. Historical: - Allergies: 08:43 No Known Allergies; hb - Home Meds: 08:43 None [Active]; hb - PMHx: 08:43 None; hb - PSHx: 08:43 None; hb - Immunization history:: Adult Immunizations up to date. - Family history:: not pertinent. - Social history:: Smoking status: Patient denies any tobacco usage or history of. - Hospitalizations: : No recent hospitalization is reported. Screenin:01 [facility] ED Fall Risk Assessment (Adult) Score/Fall Risk Level 0 - 2 = Low Risk ll1 Oriented to surroundings, Maintained a safe environment, Educated pt \T\ family on fall prevention, incl call for assistance when getting out of bed, Hourly rounding (assess needs \T\ fall precautionary measures) done. Abuse screen: Denies threats or abuse. Nutritional screening: No deficits noted. Tuberculosis screening: No symptoms or risk factors identified. Vital Signs: 08:43 BP 142 / 82; Pulse 88; Resp 16; Temp 98.1; Pulse Ox 100% on R/A; Weight 124.74 kg; hb Height 5 ft. 8 in. ; Pain 0/10; 08:43 Body Mass Index 41.81 (124.74 kg, 172.72 cm) hb 08:43 Pain Scale: Adult hb ED Course: 08:21 Patient arrived in ED. mg5 08:26 Alexx Mcmullen MD is Attending Physician. rn 08:40 SARS RAPID Sent. hb 08:43 Triage completed. hb 08:44 Arm band placed on. hb 10:01 No provider procedures requiring assistance completed. Patient did not have IV access ll1 during this emergency room visit. 10:02 Patient has correct armband on for positive identification. Provided Education on: n/a. ll1 Administered Medications: No medications were administered Medication: 10:02 VIS not applicable for this client. ll1 Outcome: 09:55 Discharge ordered by . rn 09:59 Patient left the ED. ll1 10:01 Discharged to home ambulatory. ll1 10:01 Condition: stable 10:01 Discharge instructions given to patient, Instructed on discharge instructions, follow up and referral plans. Demonstrated understanding of instructions, follow-up care. Signatures: Alexx Mcmullen MD MD rn Baxter, Heather, RN RN hb Lewis, Lynsay, RN RN Sheila Hoover mg5 Corrections: (The following items were deleted from the chart) 08:44 08:43 PMHx: Unable to Obtain; hb hb
[2023-01-21 10:02] VITALS: BP 142/82; TEMP 98.1; O2SAT 100
== END 2023-01-21 09:59 | disposition home or self-care (01) ==
LOC: ER 08:16
DX: B34.9 Viral infection, unspecified (principal); R19.7 Diarrhea, unspecified; Z20.822 Contact with and (suspected) exposure to COVID-19
CPT/HCPCS: 36415; 87811; 99283

== ENCOUNTER 2023-04-28 20:03 | Emergency (ER) | payer BC ==
[2023-04-28 20:36] LABS: Absolute Lymphocytes (CBC) 1.7 K/uL (0.7-4.9); Hematocrit 43.3 % (39.6-49.0); Lymphocytes % 30.6 % (15.3-44.8); MCV 82.5 fL (80-100); MPV 8.5 fL (7.6-11.3); Platelets 210 thou/uL (152-406); RBC Red Blood Cell Count 5.25 M/uL (4.33-5.43)
[2023-04-28] MEDS ORDERED: NA CHLORIDE 0.9% 1,000 ML ONE (20:39)
[2023-04-28 20:52] LABS: Protime INR 1.13
[2023-04-28 21:19] LABS: ALT/SGPT 31 U/L (16-61); AST/SGOT 27 U/L (15-37); Albumin 3.4 g/dL (3.4-5.0); Alkaline Phosphatase 95 U/L (45-117); BUN Blood Urea Nitrogen 11 mg/dL (7-18); Bicarbonate 25 mEq/L (21-32); Bilirubin Total 0.4 mg/dL (0.2-1.0); Glomerular Filtration Rate 88 ml/min (=/>90); Glucose Level 113 mg/dL (74-106); Magnesium 2.1 mg/dL (1.6-2.4); NT PRO-BNP 7 pg/mL (<125); Potassium 3.6 mEq/L (3.5-5.1); Protein, Total 7.5 g/dL (6.4-8.2); Sodium Level 138 mEq/L (136-145); Troponin High Sensitivity 3.8 pg/mL (<58.9)
[2023-04-28 21:22] LABS: Bilirubin Direct < 0.1 mg/dL (0-0.2); Bilirubin Indirect, Calculated ND mg/dL (0.2-0.8)
--- NOTE | 2023-04-28 21:41 | RAD REPORT ---
EXAM DESCRIPTION: CT - Angio Aorta For Dissection - 04/28/2023 8:57 pm CLINICAL HISTORY: . Chest and abd pain COMPARISON: 2018 TECHNIQUE: Computed tomography angiography of the chest, abdomen pelvis were obtained. 100 cc Isovue 370 was administered intravenously. Coronal and sagittal reconstruction were performed. MIP 3D reconstruction was performed All CT scans are performed using dose optimization technique as appropriate and may include automated exposure control or mA/KV adjustment according to patient size. FINDINGS: An aortic dissection is not seen. An aortic aneurysm is not displayed. The celiac, SMA and DELL are patent . Moderate to large pericardial effusion. No pleural effusion. Mild tree-in-bud opacities right lower lobe The liver,spleen, pancreas,adrenals and kidneys demonstrate no significant abnormality. There no evidence diverticulitis. IMPRESSION: Negative for an aortic dissection. Moderate to large pericardial effusion Mild tree-in-bud opacities may indicate an atypical infection
--- NOTE | 2023-04-28 22:14 | ER ---
Nurse's Notes [facility] Name: Phill Woodard Age: 33 yrs Sex: Male : 1990 Arrival Date: 04/28/2023 Time: 20:03 Bed 6 Private MD: Diagnosis: Pericardial effusion (noninflammatory);Typical chest pain, moderate pericardial effusion Presentation: 04/28 20:27 Chief complaint: Patient states: intermittent CP beginning 1100 today and worsening. lg3 pain 8/10 during episodes. only alleviated by position change. 324 ASA and nitro administered by EMS LIFESTYLE DIRECTOR. Coronavirus screen: Client denies travel out of the [place] in the last 14 days. At this time, the client does not indicate any symptoms associated with coronavirus-19. Ebola Screen: No symptoms or risks identified at this time. Initial Sepsis Screen: Does the patient meet any 2 criteria? No. Patient's initial sepsis screen is negative. Does the patient have a suspected source of infection? No. Patient's initial sepsis screen is negative. Risk Assessment: Do you want to hurt yourself or someone else? Patient reports no desire to harm self or others. Onset of symptoms was April 28, 2023. 20:27 Method Of Arrival: EMS: [facility] lg3 20:27 Acuity: TOMMY 3 lg3 Triage Assessment: 20:31 General: Appears in no apparent distress. comfortable, Behavior is calm, cooperative. lg3 Pain: Complains of pain in chest Pain does not radiate. Pain currently is 2 out of 10 on a pain scale. at worst was 8 out of 10 on a pain scale. Quality of pain is described as crushing, heavy, pressure, sharp, Is intermittent, episodic. EENT: No deficits noted. No signs and/or symptoms were reported regarding the EENT system. Neuro: No deficits noted. Reynoso Agitation-Sedation Scale (RASS): 0 - Alert and Calm Level of Consciousness is awake, alert, obeys commands, Oriented to person, place, time, situation. Cardiovascular: No deficits noted. Reports chest pain, Capillary refill < 3 seconds Clubbing of nail beds is absent JVD is absent Patient's skin is warm and dry. Respiratory: No deficits noted. Airway is patent Respiratory effort is even, unlabored, Respiratory pattern is regular, symmetrical. GI: No deficits noted. No signs and/or symptoms were reported involving the gastrointestinal system. Abdomen is round non-distended. : No deficits noted. No signs and/or symptoms were reported regarding the genitourinary system. Derm: No deficits noted. No signs and/or symptoms reported regarding the dermatologic system. Skin is intact, is healthy with good turgor, Skin is dry, Skin is normal, Skin temperature is warm. Musculoskeletal: No deficits noted. No signs and/or symptoms reported regarding the musculoskeletal system. Circulation, motion, and sensation intact. Range of motion: intact in all extremities. Historical: - Allergies: 20:31 No Known Allergies; lg3 - Home Meds: 20:31 Vyvanse oral [Active]; lg3 - PMHx: 20:31 ADHD; lg3 - PSHx: 20:31 None; lg3 - Immunization history:: Adult Immunizations up to date, Client reports having NOT received the Covid vaccine. Flu vaccine is not up to date. - Social history:: Smoking status: Patient denies any tobacco usage or history of. Patient/guardian denies using alcohol, street drugs. - Family history:: not pertinent. Screenin:37 [facility] ED Fall Risk Assessment (Adult) History of falling in the last 3 months, lg3 including since admission No falls in past 3 months (0 pts). Abuse screen: Denies threats or abuse. Denies injuries from another. Nutritional screening: No deficits noted. Tuberculosis screening: No symptoms or risk factors identified. Assessment: 20:34 General: see triage assessment. lg3 20:37 Pain: Pain began suddenly. lg3 22:55 Reassessment: Patient appears in no apparent distress at this time. No changes from lg3 previously documented assessment. Patient and/or family updated on plan of care and expected duration. Pain level reassessed. Patient is alert, oriented x 3, equal unlabored respirations, skin warm/dry/pink. 04/29 01:02 Reassessment: Patient appears in no apparent distress at this time. No changes from lg3 previously documented assessment. Patient and/or family updated on plan of care and expected duration. Pain level reassessed. Patient is alert, oriented x 3, equal unlabored respirations, skin warm/dry/pink. Vital Signs: 04/28 20:27 BP 151 / 91; Pulse 91; Resp 17 S; Temp 98.7(O); Pulse Ox 98% on R/A; Weight 104.33 kg lg3 (R); Height 5 ft. 9 in. (R); 22:52 BP 123 / 85; Pulse 84; Resp 17 S; Pulse Ox 98% on R/A; lg3 20:27 Body Mass Index 33.96 (104.33 kg, 175.26 cm) lg3 ED Course: 20:05 Patient arrived in ED. jj6 20:13 Masood Real MD is Attending Physician. sp4 20:30 Triage completed. lg3 20:31 Arm band placed on right wrist. lg3 20:37 Patient has correct armband on for positive identification. Placed in gown. Bed in low lg3 position. Call light in reach. Side rails up X 1. Client placed on continuous cardiac and pulse oximetry monitoring. NIBP monitoring applied. monitoring analyst on. Door closed. Noise minimized. Warm blanket given. Family accompanied patient. 20:37 Maintain EMS IV. Dressing intact. Good blood return noted. Site clean \T\ dry. Gauge \T\ lg 3 site: 20 L wrist. Patient maintains SpO2 saturation greater than 95% on room air. 20:59 CT Aorta for Dissection In Process Unspecified. EDMS 22:48 Inserted saline lock: 20 gauge in right antecubital area, using aseptic technique. lg3 Blood collected. 22:52 Katarina Badillo, RN is Primary Nurse. lg3 22:52 Lactate w/ 2H reflex if indic. Sent. lg3 22:52 Blood Culture Adult (2) Sent. lg3 22:52 COVID-19/FLU A+B Sent. lg3 22:52 Manual Differential Sent. lg3 22:58 Initiated transfer with Vivi at [facility]. rv1 23:03 [facility] declined due to capacity. rv1 23:26 Initiated transfer with Pilar at [facility]. rv1 23:[address] Frankel to [facility]. rv1 1212 01:02 No provider procedures requiring assistance completed. Patient transferred, IV remains lg3 in place. intact, No redness/swelling at site. Administered Medications: 04/28 21:00 Drug: NS 0.9% IV 1000 ml IV at 1 bolus Per protocol; 1000 mL bolus Route: IV; Rate: 1 lg3 bolus; Site: left wrist; 23:19 Follow up: IV Status: Completed infusion; IV Intake: 1000ml lg3 04/29 00:49 Drug: Oseltamivir PO 75 mg PO once Route: PO; lg3 01:02 Follow up: Response: No adverse reaction lg3 Medication: 01:03 VIS not applicable for this client. lg3 Intake: 04/28 23:19 IV: 1000ml; Total: 1000ml. lg3 Outcome: 22:13 ER care complete, transfer ordered by . sp4 04/29 01:02 Transferred by ground EMS Transfer form completed. lg3 Condition: stable Instructed on the need for transfer, Demonstrated understanding of instructions, 01:03 Patient left the ED. lg3 Signatures: Dispatcher [employer] EDMS Katarina Badillo RN RN lg3 Luann Sanches Rebecca rv1 Masood Real MD MD sp4
--- NOTE | 2023-04-28 22:14 | EDPHYS ---
Physician Documentation [facility] Name: Phill Woodard Age: 33 yrs Sex: Male : 1990 Arrival Date: 04/28/2023 Time: 20:03 Bed 6 Private MD: ED Physician Masood Real HPI: 04/28 20:13 This 33 yrs old Male presents to ER via Unassigned with complaints of Chest sp4 Pain. 20:15 33-year-old male with history of ADHD on Vyvanse, presents with acute onset left-sided sp4 chest pain, reporting also some shortness of breath, reported radiation into the left arm. EMS reported no ST elevation or depression on EKG. Patient has no history of coronary artery disease. Denied any other symptoms. Historical: - Allergies: 20:31 No Known Allergies; lg3 - Home Meds: 20:31 Vyvanse oral [Active]; lg3 - PMHx: 20:31 ADHD; lg3 - PSHx: 20:31 None; lg3 - Immunization history:: Adult Immunizations up to date, Client reports having NOT received the Covid vaccine. Flu vaccine is not up to date. - Social history:: Smoking status: Patient denies any tobacco usage or history of. Patient/guardian denies using alcohol, street drugs. - Family history:: not pertinent. ROS: 20:15 Constitutional: Negative for fever, chills, and weight loss, Eyes: Negative for injury, sp4 pain, redness, and discharge, ENT: Negative for injury, pain, and discharge, Neck: Negative for injury, pain, and swelling, Cardiovascular: Positive chest pain and some shortness of breath Respiratory: Negative for shortness of breath, cough, wheezing, and pleuritic chest pain, Abdomen/GI: Negative for abdominal pain, nausea, vomiting, diarrhea, and constipation, Back: Negative for injury and pain, 20:15 All other systems are negative, Exam: 20:15 Constitutional: This is a well developed, well nourished patient who is awake, alert, sp4 and in no acute distress. Head/Face: Normocephalic, atraumatic. Eyes: Pupils equal round and reactive to light, extra-ocular motions intact. Lids and lashes normal. Conjunctiva and sclera are not injected. Cornea within normal limits. Periorbital areas with no swelling, redness, or edema. ENT: Nares patent. No nasal discharge, no septal abnormalities noted. Tympanic membranes are normal and external auditory canals are clear. Oropharynx with no redness, swelling, or masses, exudates, or evidence of obstruction, uvula midline. Mucous membranes moist. Neck: Trachea midline, no thyromegaly or masses palpated, and no cervical lymphadenopathy. Supple, full range of motion without nuchal rigidity, or vertebral point tenderness. Chest/axilla: Normal chest wall appearance and motion. Nontender with no deformity. No lesions are appreciated. Cardiovascular: Regular rate and rhythm with a normal S1 and S2. No gallops, murmurs, or rubs. Normal PMI, no JVD. No pulse deficits. Respiratory: Lungs have equal breath sounds bilaterally, clear to auscultation and percussion. No rales, rhonchi or wheezes noted. No increased work of breathing, no retractions or nasal flaring. Abdomen/GI: Soft, non-tender, with normal bowel sounds. No distension or tympany. No guarding or rebound. No evidence of tenderness throughout. Back: No spinal tenderness. No costovertebral tenderness. Skin: Warm, dry with normal turgor. Normal color with no rashes, no lesions, and no evidence of cellulitis. MS/ Extremity: Pulses equal, no cyanosis. Neurovascular intact. Full, normal range of motion. Neuro: Awake and alert, GCS 15, oriented to person, place, time, and situation. Cranial nerves II-XII grossly intact. Motor strength 5/5 in all extremities. Sensory grossly intact. Psych: Awake, alert, with orientation to person, place and time. Behavior, mood, and affect are within normal limits 20:15 ECG was reviewed by the Attending Physician. There is EKG at 2012, normal sinus sp4 rhythm at a rate of 92, left axis deviation otherwise no ST elevation or depression. No ectopy. Vital Signs: 20:27 BP 151 / 91; Pulse 91; Resp 17 S; Temp 98.7(O); Pulse Ox 98% on R/A; Weight 104.33 kg lg3 (R); Height 5 ft. 9 in. (R); 22:52 BP 123 / 85; Pulse 84; Resp 17 S; Pulse Ox 98% on R/A; lg3 20:27 Body Mass Index 33.96 (104.33 kg, 175.26 cm) lg3 MDM: 20:44 Patient medically screened. sp4 22:12 ED course: EXAM DESCRIPTION: CT - Angio Aorta For Dissection - 04/28/2023 8:57 pm sp4 CLINICAL HISTORY: . Chest and abd pain COMPARISON: 2018 TECHNIQUE: Computed tomography angiography of the chest, abdomen pelvis were obtained. 100 cc Isovue 370 was administered intravenously. Coronal and sagittal reconstruction were performed. MIP 3D reconstruction was performed All CT scans are performed using dose optimization technique as appropriate and may include automated exposure control or mA/KV adjustment according to patient size. FINDINGS: An aortic dissection is not seen. An aortic aneurysm is not displayed. The celiac, SMA and DELL are patent . Moderate to large pericardial effusion. No pleural effusion. Mild tree-in-bud opacities right lower lobe The liver,spleen, pancreas,adrenals and kidneys demonstrate no significant abnormality. There no evidence diverticulitis. IMPRESSION: Negative for an aortic dissection. Moderate to large pericardial effusion Mild tree-in-bud opacities may indicate an atypical infection. 22:13 Differential diagnosis: abnormal EKG, acute myocardial infarction, acute pericarditis, sp4 anxiety, coronary artery disease chest wall pain, congestive heart failure. HEART Score: History: Slightly Suspicious (0), ECG: Non specific repolarization disturbance / LBTB / PM (1), Age: < or = 45 years (0), Risk Factors: No Risk Factors Known (0), Troponin: < or = 1 x Normal Limit (0), Total Score = 1. Data reviewed: vital signs, nurses notes, EMS record, old medical records, lab test result(s), EKG, radiologic studies, CT scan. 04/28 20:14 Order name: Basic Metabolic Panel; Complete Time: 21:29 sp4 04/28 20:14 Order name: CBC with Diff; Complete Time: 23:43 sp4 04/28 20:14 Order name: LFT's; Complete Time: 21:29 sp4 04/28 20:14 Order name: Magnesium; Complete Time: 21:29 sp4 04/28 20:14 Order name: NT PRO-BNP; Complete Time: 21:29 sp4 04/28 20:14 Order name: PT-INR; Complete Time: 21:29 sp4 04/28 20:14 Order name: Troponin HS; Complete Time: 21:29 sp4 04/28 21:24 Order name: Manual Differential; Complete Time: 23:43 EDMS 04/28 21:29 Order name: CREATININE WHOLE BLOOD; Complete Time: 21:50 EDMS 04/28 22:14 Order name: COVID-19/FLU A+B; Complete Time: 00:24 sp4 04/28 22:19 Order name: Blood Culture Adult (2) 4 04/28 22:20 Order name: Lactate w/ 2H reflex if indic.; Complete Time: 23:43 sp4 04/28 20:14 Order name: CT Aorta for Dissection; Complete Time: 21:50 sp4 04/28 20:14 Order name: EKG; Complete Time: 20:15 4 04/28 20:14 Order name: Cardiac monitoring; Complete Time: 20:23 4 04/28 20:14 Order name: EKG - Nurse/Tech; Complete Time: 20:23 4 04/28 20:14 Order name: IV Saline Lock; Complete Time: 20:23 4 04/28 20:14 Order name: Labs collected and sent; Complete Time: 20:38 sp4 04/28 20:14 Order name: O2 Per Protocol; Complete Time: 20:23 4 04/28 20:14 Order name: O2 Sat Monitoring; Complete Time: 20:23 sp4 EC:15 Rate is 92 beats/min. Rhythm is regular, Normal Sinus Rhythm. Left axis deviation sp4 noted. MT interval is normal. QRS interval is normal. QT interval is normal. No Q waves. T waves are Normal. No ST changes noted. Clinical impression: No evidence of ischemia. Interpreted by me. Reviewed by me. Administered Medications: 21:00 Drug: NS 0.9% IV 1000 ml IV at 1 bolus Per protocol; 1000 mL bolus Route: IV; Rate: 1 lg3 bolus; Site: left wrist; 23:19 Follow up: IV Status: Completed infusion; IV Intake: 1000ml lg3 04/29 00:49 Drug: Oseltamivir PO 75 mg PO once Route: PO; lg3 01:02 Follow up: Response: No adverse reaction lg3 Disposition Summary: 04/28/23 22:13 Transfer Ordered Notes: Transfer Location: [facility]-System sp4 Reason: Higher level of care sp4 Condition: Stable sp4 Problem: new sp4 Symptoms: have improved sp4 Accepting Physician: [facility] Attending (04/29/23 01:03) lg3 Diagnosis - Pericardial effusion (noninflammatory) sp4 - Typical chest pain, moderate pericardial effusion sp4 Forms: - Medication Reconciliation Form sp4 - SBAR form sp4 Signatures: Dispatcher [employer] Katarina Hope RN RN lg3 Masood Real MD MD sp4 Corrections: (The following items were deleted from the chart) 01:03 04/28 22:13 [facility] Attending sp4 lg3
[2023-04-28 22:54] LABS: Blood Morphology Comment NOT SEEN (NOT SEEN); Platelet Estimate ADEQ
[2023-04-28 23:39] LABS: SARS-COV-2 RT PCR NEGATIVE (NEGATIVE)
[2023-04-29] MEDS ORDERED: OSELTAMIVIR 75 MG CAP PO ONE (01:00)
[2023-04-29 01:20] VITALS: TEMP 98.7; O2SAT 98
[2023-04-29 01:27] VITALS: BP 123/85
--- NOTE | 2023-04-29 13:41 | EKG ---
Test Date: 2023-04-28 Test Time: 20:12:46 Seasonal Clerk: AMY MEASUREMENT RESULTS: Intervals: Rate: 92 MT: 158 QRSD: 80 QT: 342 QTc: 422 [place]: P: 31 MT: 158 QRS: -37 T: 38 INTERPRETIVE STATEMENTS: Normal sinus rhythm Left axis deviation Low voltage QRS Abnormal ECG Compared to ECG 02/25/2018 13:58:29 Left-axis deviation now present Low QRS voltage now present Sinus arrhythmia no longer present Electronically Signed On 04-29-23 13:39:07 MEDICAL ADMINISTRATOR by Elmer Arroyo
== END 2023-04-29 01:03 | disposition short-term general hospital (02) ==
LOC: ER 20:03
DX: I31.39 Other pericardial effusion (noninflammatory) (principal); Z11.52 Encounter for screening for COVID-19
CPT/HCPCS: 96361; 93005; 87040 ×2; 85025; 80048; 36415; 83735; 85610; 82565; 80076; 83605; 84484; 83880; 0240U; 71275; 74175; 96360; 99285; Q9967; J7030

== ENCOUNTER → 2023-05-11 | Emergency (ER) | payer BC ==
[~2023-05-11] MED LIST: CEFTRIAXONE 2000 MG/VIAL ONE; KETOROLAC 30 MG/ML INJ ONE
[2023-05-11 10:44] LABS: Hematocrit 43.7 % (39.6-49.0); Lymphocytes % 23.9 % (15.3-44.8); MCV 83.2 fL (80-100); MPV 8.6 fL (7.6-11.3); Platelets 375 thou/uL (152-406); RBC Red Blood Cell Count 5.26 M/uL (4.33-5.43)
[2023-05-11 10:50] LABS: Protime INR 1.04
[2023-05-11 11:06] LABS: Albumin 3.1 g/dL (3.4-5.0); Bilirubin Direct 0.1 mg/dL (0-0.2); Bilirubin Indirect, Calculated 0.2 mg/dL (0.2-0.8); Bilirubin Total 0.3 mg/dL (0.2-1.0); Magnesium 2.2 mg/dL (1.6-2.4); Potassium 3.9 mEq/L (3.5-5.1); Protein, Total 7.2 g/dL (6.4-8.2); Troponin High Sensitivity 4.7 pg/mL (<58.9)
--- NOTE | 2023-05-11 11:18 | RAD REPORT ---
[facility] CLINICAL HISTORY: CHEST PAIN COMPARISON: Chest Single View dated 02/25/2018; CHEST PA AND LAT 2 VIEW dated 06/16/2015 TECHNIQUE: Portable AP view of the chest. FINDINGS: The lungs are clear. No pneumothorax or effusion. The cardiomediastinal contours are unre markable. IMPRESSION: No acute cardiopulmonary process.
[2023-05-11 11:27] LABS: Specific Gravity 1.016 (1.005-1.030); Urine Bacteria None Seen /HPF (<20); Urine Bilirubin NEGATIVE (Negative); Urine Blood Negative (Negative); Urine Clarity Clear (Clear); Urine Color Light-Yellow (Yellow); Urine Glucose NEGATIVE (Negative); Urine Mucus Slight /HPF (None Seen); Urine Protein NEGATIVE (Negative); Urine RBC <5 /HPF (None Seen); Urine Urobilinogen Normal (Normal)
--- NOTE | 2023-05-11 12:54 | RAD REPORT ---
EXAM DESCRIPTION: CT - Chest For Pe Angio - 05/11/2023 11:51 am CLINICAL HISTORY: CHEST PAIN COMPARISON: Thorax W/ Con dated 02/25/2018; Chest Single View dated 05/11/2023; Angio Aorta For Dis section dated 04/28/2023 TECHNIQUE: Thin axial CT images of the chest were obtained following administration of 100 mL Isovue 370 IV contrast. Multiplanar reconstructions, and maximum intensity projection reconstructions were generated and reviewed. Exam utilizes a protocol for optimal evaluation of pulmonary arterial tree. All CT scans are performed using dose optimization technique as appropriate and may include automated exposure control or mA/KV adjustment according to patient size. FINDINGS: Pulmonary arteries are normal. No emboli or other suspicious finding. No acute or signific ant aorta findings. Small left layering pleural effusion with underlying dependent segmental lower lobe opacity, could re present atelectasis or pneumonia. No suspicious mass or other infiltrate. No pleural thickening. No p neumothorax. Mild cardiomegaly. At least moderate residual pericardial effusion with a single gas locule anteriorl y suggestive of sequelae of recent pericardiocentesis. No abnormal mediastinal or hilar masses or lymphadenopathy seen. No chest wall mass or abnormal axill iary lymphadenopathy. IMPRESSION: No evidence of acute central pulmonary emboli. At least moderate residual pericardial effusion following pericardiocentesis. Mild cardiomegaly. Mild dependent left pleural effusion with underlying segmental left lower lobe opacity which may refl ect atelectasis or pneumonia.
--- NOTE | 2023-05-11 14:18 | EDPHYS ---
Physician Documentation [facility] Name: Phill Woodard Age: 33 yrs Sex: Male : 1990 Arrival Date: 05/11/2023 Time: 10:00 Bed 14 Private MD: ED Physician Deion Longoria HPI: 05/11 10:19 This 33 yrs old Male presents to ER via Unassigned with complaints of Left Side Chest cp Pain. 10:19 The patient or guardian reports chest pain that is located primarily in the anterior cp chest wall, left. 10:19 The pain does not radiate. Associated signs and symptoms: Pertinent negatives: cp abdominal pain, diaphoresis, lower extremity pain, lower extremity swelling, syncope, vomiting, fever. The chest pain is described as poking. Duration: The patient or guardian reports a single episode, that is still ongoing. Modifying factors: the symptoms are aggravated by deep breath. 10:20 Patient reports having pericardiocentesis by aquatics manager at [facility] about 1-2 cp weeks ago. Historical: - Allergies: 10:20 No Known Allergies; rs5 - PMHx: 10:20 adhd; rs5 - PSHx: 10:20 Pericardial Centesis; rs5 - Immunization history:: Adult Immunizations unknown. - Social history:: Smoking status: Patient denies any tobacco usage or history of. ROS: 10:25 Constitutional: Negative for body aches, chills, fever, poor PO intake, cp 10:25 Eyes: Negative for injury, pain, redness, and discharge, cp 10:25 ENT: Negative for drainage from ear(s), ear pain, sore throat, difficulty swallowing, difficulty handling secretions, 10:25 Cardiovascular: Positive for chest pain, Negative for edema, palpitations, 10:25 Respiratory: Positive for shortness of breath, Negative for cough, wheezing, 10:25 Abdomen/GI: Negative for abdominal pain, nausea, vomiting, and diarrhea, 10:25 Back: Negative for pain at rest, pain with movement, 10:25 Skin: Negative for rash, 10:25 Neuro: Negative for altered mental status, dizziness, headache, weakness, 10:25 All other systems are negative, Exam: 10:30 Constitutional: The patient appears in no acute distress, alert, awake, cp non-diaphoretic, non-toxic, well developed, well nourished, 10:30 Head/Face: Normocephalic, atraumatic. cp 10:30 Eyes: Periorbital structures: appear normal, Conjunctiva: normal, no exudate, no injection, Sclera: no appreciated abnormality, Lids and lashes: appear normal, bilaterally, 10:30 ENT: External ear(s): are unremarkable, Nose: is normal, Mouth: Lips: moist, Oral mucosa: pink and intact, moist, Posterior pharynx: Airway: no evidence of obstruction, patent, 10:30 Neck: ROM/movement: is normal, is supple, without pain, no range of motions limitations, no meningismus, no nuchal rigidity, 10:30 Chest/axilla: Inspection: normal, Palpation: is normal, no crepitus, no tenderness, 10:30 Cardiovascular: Rate: normal, Rhythm: regular, Edema: is not appreciated, JVD: is not appreciated, 10:30 Respiratory: the patient does not display signs of respiratory distress, Respirations: normal, no use of accessory muscles, no retractions, labored breathing, is not present, Breath sounds: are clear throughout, no decreased breath sounds, no stridor, no wheezing, 10:30 Abdomen/GI: Inspection: abdomen appears normal, Palpation: abdomen is soft and non-tender, in all quadrants, 10:30 Skin: cellulitis, is not appreciated, no rash present. 10:30 Neuro: Orientation: to person, place \T\ time. Mentation: is normal, Motor: moves all fours, strength is normal, Sensation: is normal, 10:40 ECG was reviewed by the Attending Physician. cp Vital Signs: 10:14 BP 128 / 82; Pulse 77; Resp 17; Temp 98(O); Pulse Ox 99% ; rs5 10:14 BP 131 / 85; Pulse 73; Resp 17; Pulse Ox 99% on R/A; rs5 10:18 BP 122 / 79; Pulse 80; Resp 17; Pulse Ox 99% on R/A; rs5 13:15 BP 133 / 85; Pulse 70; Resp 18; Pulse Ox 99% on R/A; rs5 14:20 BP 125 / 78; Pulse 81; Resp 19; Pulse Ox 98% on R/A; rs5 MDM: 10:10 Patient medically screened. cp 13:05 Data reviewed: vital signs, nurses notes, lab test result(s), EKG, radiologic studies, CT scan, plain films. 13:05 Differential diagnosis: acute myocardial infarction, acute pericarditis, chest wall cp pain, pericarditis, pleurisy, pneumonia, pneumothorax, pulmonary embolus. I considered the following discharge prescriptions or medication management in the emergency department Medications were administered in the Emergency Department. See MAR. Independent interpretation of the following test(s) in the Emergency Department EKG: See my EKG interpretation above. Counseling: I had a detailed discussion with the patient and/or guardian regarding the historical points, exam findings, and any diagnostic results supporting the discharge/admit diagnosis, lab results, radiology results, the need to transfer to another facility, continuity of care. Response to treatment: the patient's symptoms have markedly improved after treatment. 14:48 Refusal of service: The patient/guardian displays adequate decision making capability and despite a detailed discussion of alternatives, benefits, risks, and consequences refuses: transfer to [facility] for continuity of care. Patient requesting discharge and understands risk of worsening of condition and . 05/11 10:21 Order name: Basic Metabolic Panel; Complete Time: 11:12 05/11 11:12 Interpretation: Normal except: CL 110. 05/11 10:21 Order name: CBC with Diff; Complete Time: 11:12 05/11 10:21 Order name: LFT's; Complete Time: 11:12 05/11 10:21 Order name: Magnesium; Complete Time: 11:12 05/11 10:21 Order name: NT PRO-BNP; Complete Time: 11:12 05/11 10:21 Order name: PT-INR; Complete Time: 11:12 05/11 10:21 Order name: Troponin HS; Complete Time: 11:12 05/11 10:21 Order name: Urinalysis W/Microscopic; Complete Time: 11:32 05/11 12:59 Order name: Blood Culture Adult (2) 05/11 12:59 Order name: Lactate w/ 2H reflex if indic. 05/11 10:21 Order name: XRAY Chest (1 view); Complete Time: 11:32 05/11 11:17 Order name: CT Chest For PE Angio; Complete Time: 12:57 05/11 10:21 Order name: EKG; Complete Time: 10:22 cp 05/11 10:21 Order name: Cardiac monitoring; Complete Time: 10:43 cp 05/11 10:21 Order name: EKG - Nurse/Tech; Complete Time: 10:43 cp 05/11 10:21 Order name: IV Saline Lock; Complete Time: 10:43 cp 05/11 10:21 Order name: Labs collected and sent; Complete Time: 10:43 cp 05/11 10:21 Order name: O2 Per Protocol; Complete Time: 10:43 cp 05/11 10:21 Order name: O2 Sat Monitoring; Complete Time: 10:43 cp EC:40 Rate is 89 beats/min. Rhythm is regular. [place] interval is normal. QRS interval is normal. cp QT interval is normal. T waves are Inverted in leads I, aVL. Interpreted by me. Reviewed by me. Administered Medications: 10:30 Drug: Ketorolac IVP 15 mg IVP once Route: IVP; Site: left antecubital; rs5 10:45 Follow up: Response: No adverse reaction; Pain is decreased rs5 14:18 Drug: Rocephin IV 2 grams IV at calculated rate once; Given slow IV push per pharmarcy rs5 instructions Route: IV; Rate: calculated rate; Site: right antecubital; 15:00 Follow up: Response: No adverse reaction rs5 19:23 Not Given (Patient Refused): [id number] mg IVPB once over 1 hrs; mix in 250 mL NS rs5 Disposition: 16:32 Co-signature as Attending Physician, Deion Longoria MD I reviewed the patient's care rt provided by the Advanced Practice Provider and agree with the diagnosis and treatment plan. Disposition Summary: 05/11/23 14:50 Discharge Ordered Notes: Location: Home cp Problem: new(05/11/23 14:50) cp Symptoms: have improved(05/11/23 14:50) cp Condition: Stable(05/11/23 14:50) cp Diagnosis - Pericardial effusion (noninflammatory)(05/11/23 14:50) cp - Chest pain on breathing(05/11/23 14:50) cp - Pneumonia, unspecified organism cp - Shortness of breath cp Followup: cp - With: Private Physician - When: 1 - 2 days - Reason: Recheck today's complaints Discharge Instructions: - Discharge Summary Sheet cp - Nonspecific Chest Pain, Adult cp - Pericardial Effusion cp - Community-Acquired Pneumonia, Adult cp - Shortness of Breath, Adult cp Forms: - Medication Reconciliation Form cp - Thank You Letter cp - Antibiotic Education cp - Prescription Opioid Use cp - Patient Portal Instructions cp - Leadership Thank You Letter cp Prescriptions: - Zithromax Z-Davian 250 mg Oral Tablet - take 1 tablet ORAL route as directed for 5 days Day 1 - take two (2) tablets cp one time. Day 2, 3, 4 , 5 take one (1) tablet once daily.; 6 tablet; Refills: 0, Product Selection Permitted Signatures: Dispatcher [employer] EDMS Kip Fields PA PA cp Deion Longoria MD MD rt Rufino Good RN RN rs5 Corrections: (The following items were deleted from the chart) 14:17 14:17 Doctor cp cp 14:49 14:17 Other Acute Care Facility cp cp 14:49 14:17 Higher level of care cp cp 14:49 14:17 Stable cp cp 14:49 14:17 an ongoing problem cp cp 14:49 14:17 have improved cp cp 14:49 14:17 Pericardial effusion (noninflammatory) cp cp 14:49 14:17 Doctor cp cp 14:49 14:17 Chest pain on breathing cp cp
--- NOTE | 2023-05-11 14:18 | ER ---
Nurse's Notes [facility] Name: Phill Woodard Age: 33 yrs Sex: Male : 1990 Arrival Date: 05/11/2023 Time: 10:00 Bed 14 Private MD: Diagnosis: Pericardial effusion (noninflammatory);Chest pain on breathing;Pneumonia, unspecified organism;Shortness of breath Presentation: 05/11 10:18 Chief complaint: Patient states: Pt had a pericardial centesis last Friday and was rs5 discharged home Friday. Pt is now having left sided chest pain on inspiration. Coronavirus screen: At this time, the client does not indicate any symptoms associated with coronavirus-19. Ebola Screen: No symptoms or risks identified at this time. Initial Sepsis Screen: Does the patient meet any 2 criteria? No. Patient's initial sepsis screen is negative. Initial Sepsis Screen: Does the patient have a suspected source of infection? No. Patient's initial sepsis screen is negative. Risk Assessment: Do you want to hurt yourself or someone else? Patient reports no desire to harm self or others. Onset of symptoms. 10:18 Method Of Arrival: Ambulatory rs5 10:18 Acuity: TOMMY 3 rs5 Historical: - Allergies: 10:20 No Known Allergies; rs5 - PMHx: 10:20 adhd; rs5 - PSHx: 10:20 Pericardial Centesis; rs5 - Immunization history:: Adult Immunizations unknown. - Social history:: Smoking status: Patient denies any tobacco usage or history of. Screenin:05 [facility] ED Fall Risk Assessment (Adult) History of falling in the last 3 months, rs5 including since admission No falls in past 3 months (0 pts) Confusion or Disorientation No (0 pts) Intoxicated or Sedated No (0 pts) Impaired Gait No (0 pts) Mobility Assist Device Used No (0 pt) Altered Elimination No (0 pt) Score/Fall Risk Level 0 - 2 = Low Risk Oriented to surroundings, Maintained a safe environment. Abuse screen: Denies threats or abuse. Nutritional screening: No deficits noted. 10:05 Tuberculosis screening: No symptoms or risk factors identified. rs5 Assessment: 10:10 General: Appears in no apparent distress. comfortable, Behavior is calm, cooperative. rs5 Pain: Complains of pain in left side of chest on inspiration Pain does not radiate. Pain currently is 5 out of 10 on a pain scale. Quality of pain is described as aching, Is continuous. Neuro: Level of Consciousness is awake, alert, obeys commands, Oriented to person, place, time, situation. Cardiovascular: Heart tones S1 S2 present Rhythm is regular. Respiratory: Airway is patent Respiratory effort is even, unlabored, Respiratory pattern is regular, symmetrical, Breath sounds are clear bilaterally. Respiratory: Reports shortness of breath on exertion. GI: Abdomen is round non-distended, Bowel sounds present X 4 quads. Abd is soft and non tender X 4 quads. : No signs and/or symptoms were reported regarding the genitourinary system. EENT: No signs and/or symptoms were reported regarding the EENT system. Derm: Skin is intact, Skin is pink, warm \\T\\ dry. Musculoskeletal: Range of motion: intact in all extremities. 11:02 Reassessment: Patient and/or family updated on plan of care and expected duration. Pain rs5 level reassessed. Patient is alert, oriented x 3, equal unlabored respirations, skin warm/dry/pink. Patient denies pain at this time. Patient states feeling better. Patient states symptoms have improved. 12:20 Reassessment: No changes from previously documented assessment. rs5 13:45 Reassessment: Patient and/or family updated on plan of care and expected duration. Pain rs5 level reassessed. Patient is alert, oriented x 3, equal unlabored respirations, skin warm/dry/pink. Patient denies pain at this time. 14:45 Reassessment: Pt states "I want to leave, I don't want to be transferred, I want to go rs5 home" Provider notified. 14:50 Reassessment: Provider at bedside. rs5 15:10 Reassessment: Patient and/or family updated on plan of care and expected duration. Pain rs5 level reassessed. Patient is alert, oriented x 3, equal unlabored respirations, skin warm/dry/pink. Patient denies pain at this time. 15:10 Cardiovascular: Denies chest pain, Rhythm is regular. Respiratory: Airway is patent rs5 Respiratory effort is even, unlabored, Respiratory pattern is regular, symmetrical. Vital Signs: 10:14 BP 128 / 82; Pulse 77; Resp 17; Temp 98(O); Pulse Ox 99% ; rs5 10:14 BP 131 / 85; Pulse 73; Resp 17; Pulse Ox 99% on R/A; rs5 10:18 BP 122 / 79; Pulse 80; Resp 17; Pulse Ox 99% on R/A; rs5 13:15 BP 133 / 85; Pulse 70; Resp 18; Pulse Ox 99% on R/A; rs5 14:20 BP 125 / 78; Pulse 81; Resp 19; Pulse Ox 98% on R/A; rs5 ED Course: 10:02 Patient arrived in ED. im 10:05 Patient has correct armband on for positive identification. Placed in gown. Bed in low rs5 position. Call light in reach. Side rails up X2. 10:05 Arm band placed on right wrist. rs5 10:10 Kip Fields PA is PHCP. cp 10:10 Deion Longoria MD is Attending Physician. cp 10:15 Inserted saline lock: 20 gauge in right antecubital area, using aseptic technique. rs5 Blood collected. 10:18 Rufino Good, RN is Primary Nurse. rs5 10:20 Triage completed. rs5 11:10 XRAY Chest (1 view) In Process Unspecified. EDMS 11:53 CT Chest For PE Angio In Process Unspecified. EDMS 15:00 No provider procedures requiring assistance completed. rs5 15:00 IV discontinued, intact, bleeding controlled, No redness/swelling at site. Pressure rs5 dressing applied. Administered Medications: 10:30 Drug: Ketorolac IVP 15 mg IVP once Route: IVP; Site: left antecubital; rs5 10:45 Follow up: Response: No adverse reaction; Pain is decreased rs5 14:18 Drug: Rocephin IV 2 grams IV at calculated rate once; Given slow IV push per pharmarcy rs5 instructions Route: IV; Rate: calculated rate; Site: right antecubital; 15:00 Follow up: Response: No adverse reaction rs5 19:23 Not Given (Patient Refused): [id number] mg IVPB once over 1 hrs; mix in 250 mL NS rs5 Medication: 15:00 VIS not applicable for this client. rs5 Outcome: 14:17 ER care complete, transfer ordered by . cp 14:50 Discharge ordered by . cp 15:00 Discharged to home ambulatory, rs5 15:00 Condition: stable 15:00 Discharge instructions given to patient, family, Instructed on discharge instructions, follow up and referral plans. Demonstrated understanding of instructions, follow-up care, 15:12 Patient left the ED. rs5 Signatures: Dispatcher [employer] EDMS Kip Fields PA PA cp Sotelo, Ricky RN RN rs5 Iona Suarez Corrections: (The following items were deleted from the chart) 19:20 14:40 Reassessment: Pt states "I want to leave, I don't want to be transferred, I want rs5 to go home" Provider notified. rs5 19:22 15:21 BP 133 / 85; Pulse 70bpm; Resp 18bpm; Pulse Ox 99% RA; rs5 rs5 19:23 15:07 Patient left the ED. rs5 rs5
[2023-05-11 15:26] VITALS: BP 122/79; O2SAT 99
== END ==
LOC: ER 10:00
DX: J18.9 Pneumonia, unspecified organism (principal); I31.39 Other pericardial effusion (noninflammatory); R06.02 Shortness of breath
CPT/HCPCS: 87040 ×2; 85025; 81001; 80048; 36415; 83735; 85610; 80076; 83605; 84484; 83880; 71275; 71045; 99284; Q9967; J0696; 93005